=== PATIENT | male | born 1935 | race Caucasian/White ===

== ENCOUNTER → 2020-07-23 | Outpatient (CLI) | payer OTHER ==
[~2020-07-23] MED LIST: REGADENOSON 0.4 MG/5 ML PF SYG IVP SCH
== END | disposition home or self-care (01) ==
LOC: SHCH 08:34
PROVIDERS: ATTEND Internal Medicine Cardiovascular Disease
DX: I25.89 Other forms of chronic ischemic heart disease (principal); I25.10 Atherosclerotic heart disease of native coronary artery without angina pectoris
CPT/HCPCS: 78452; 93017; 96374; A9500 ×2; J2785

== ENCOUNTER 2022-01-23 05:45 | Day surgery (SDC) | payer OTHER ==
[2022-01-21 08:59] LABS: BASOPHILS % (AUTO) 0.3 % (0.0-5.0); CREATININE 1.2 mg/dL (0.5-1.5); EOSINOPHILS % (AUTO) 1.2 % (0.0-8.0); HEMATOCRIT 36.4 % (42-54); LYMPHOCYTES % (AUTO) 21.1 % (21.0-51.0); MEAN CORPUSCULAR HEMOGLOBIN 27.5 pg (27.0-33.0); MEAN CORPUSCULAR HGB CONC 30.8 g/dL (32.0-36.0); MEAN CORPUSCULAR VOLUME 89.4 fL (79-99); MONOCYTES % (AUTO) 15.4 % (3.0-13.0); NEUTROPHILS % (AUTO) 61.7 % (40.0-77.0); PLATELET COUNT (AUTO) 265 K/uL (130-400); RED BLOOD CELL COUNT(AUTO) 4.07 MIL/uL (4.50-6.20); RED CELL DISTRIBUTION WIDTH 15.8 % (11.0-15.5); WHITE BLOOD COUNT (AUTO) 5.7 K/uL (4.8-10.8)
[2022-01-21 09:00] LABS: INR 1.02 (0.85-1.15); PROTHROMBIN TIME 11.1 SEC (9.6-11.6)
[2022-01-21 09:44] LABS: B-TYPE NATRIURETIC PEPTIDE 561 pg/mL (0-100)
[2022-01-22 13:00] VITALS: BP 125/67
[~2022-01-23] VITALS: Ht 177.8 cm; Wt 86.2 kg
[2022-01-23] VITALS (9 sets, daily range): BP systolic 131–152; BP diastolic 72–92
[~2022-01-23 05:45] MED LIST changes: +AEC81 PO; +APIX5TAB PO; +AREDS2 PO; +ATOR40TA69 PO; +CALC-1034 PO; +FERS325 PO; +ISOS60TA77 PO; +LOSA50TA64 PO; +MAGN400C PO; +MELA5TAB14 PO; +METO-409 PO; +MULT-1285 PO; +NITR0.4T50 SL; +OMEG-148 PO; +PANT20TA18 PO; +RANO10003 PO; -REGADENOSON 0.4 MG/5 ML PF SYG IVP SCH; +VITA1CAP85 PO
[2022-01-23] MEDS ORDERED: IOHEXOL 350 MG/ML 100ML INFUS..BTL IV ONE (07:04)
[2022-01-23] MEDS ORDERED: HEPARIN 10,000 UNIT/10ML (1,000 UNIT/ML) VIAL ONE (07:04)
[2022-01-23] MEDS ORDERED: NITROGLYCERIN 50MG VIAL ONE (07:04)
[2022-01-23] MEDS ORDERED: BIVALIRUDIN 250 MG/VIAL IV ONE (07:04)
[2022-01-23] MEDS ORDERED: IOHEXOL-350 50ML VIAL IV ONE (07:04)
[2022-01-23] MEDS ORDERED: MIDAZOLAM HCL 1 MG/ML 2ML VIAL ONE (07:05)
[2022-01-23] MEDS ORDERED: LIDOCAINE HCL 400MG/20ML VIAL ONE (07:05)
[2022-01-23] MEDS ORDERED: FENTANYL CITRATE PF 50 MCG/1 ML 2ML VIAL ONE (07:06)
[2022-01-23] MEDS ORDERED: 0.9%NACL 1000ML 1,000 ML IV ONE (07:19)
== END 2022-01-23 12:10 | disposition home or self-care (01) ==
LOC: DAH 05:45
PROVIDERS: ATTEND Internal Medicine Cardiovascular Disease
DX: I25.119 Atherosclerotic heart disease of native coronary artery with unspecified angina pectoris (principal); I25.82 Chronic total occlusion of coronary artery; I10 Essential (primary) hypertension; E78.5 Hyperlipidemia, unspecified; I48.19 Other persistent atrial fibrillation; Z85.46 Personal history of malignant neoplasm of prostate; Z82.49 Family history of ischemic heart disease and other diseases of the circulatory system; Z98.890 Other specified postprocedural states; Z79.899 Other long term (current) drug therapy; Z79.01 Long term (current) use of anticoagulants
CPT/HCPCS: 36415; 71045; 83880; 80048; 85025; 85610; 85730; 93005; 93455; A4215; A4216; A4221; A4222; A4223 ×3; A4606; A4663; C1760; C1894; J1644; J3490 ×2; J7030; Q9965; Q9967; J0583; J2250; J3010

== ENCOUNTER 2022-03-19 11:17 | Emergency (ER) | payer MEDICARE, OTHER ==
[~2022-03-19] VITALS: Ht 175.3 cm; Wt 113.4 kg
[2022-03-19] MEDS ORDERED: ACETAMINOPHEN 500 MG TABLET PO ONE (11:30)
[2022-03-19 11:41] LABS: BASOPHILS % (AUTO) 0.2 % (0.0-5.0); EOSINOPHILS % (AUTO) 1.2 % (0.0-8.0); HEMATOCRIT 37.3 % (42-54); LYMPHOCYTES % (AUTO) 16.8 % (21.0-51.0); MEAN CORPUSCULAR HEMOGLOBIN 28.8 pg (27.0-33.0); MEAN CORPUSCULAR VOLUME 87.4 fL (79-99); MONOCYTES % (AUTO) 11.2 % (3.0-13.0); PLATELET COUNT (AUTO) 261 K/uL (130-400); RED BLOOD CELL COUNT(AUTO) 4.27 MIL/uL (4.50-6.20); RED CELL DISTRIBUTION WIDTH 14.7 % (11.0-15.5); WHITE BLOOD COUNT (AUTO) 6.5 K/uL (4.8-10.8)
[2022-03-19 11:59] LABS: CREATININE 1.2 mg/dL (0.5-1.5); POTASSIUM 4.5 mmol/L (3.5-5.1)
[2022-03-19] MEDS ORDERED: BACITRACIN 28.4 GM OINT TP ONE (12:00)
[2022-03-19 12:03] LABS: ALBUMIN 3.4 g/dL (3.5-5.0); TOTAL PROTEIN, SERUM 7.7 g/dL (6.0-8.3)
[2022-03-19 12:36] LABS: APPEARANCE,URINE TURBID (CLEAR); BILIRUBIN,URINE NEGATIVE (NEGATIVE); COLOR,URINE YELLOW (YELLOW); GLUCOSE, URINE (UA) NEGATIVE (NEGATIVE); KETONES,URINE NEGATIVE (NEGATIVE); LEUKOCYTE ESTERASE ,URINE NEGATIVE (NEGATIVE); NITRATE,URINE NEGATIVE (NEGATIVE); OCCULT BLOOD,URINE NEGATIVE (NEGATIVE); PH,URINE 8.5 (5.0-8.0); PROTEIN,URINE TRACE mg/dL (NEGATIVE); UROBILINOGEN,URINE 0.2 mg/dL (0.2-1.0)
[2022-03-19 12:59] LABS: AMORPHOUS SEDIMENT,UR Many /LPF (None Seen); BACTERIA,URINE Rare /HPF (None Seen); RBC,URINE 0-1 /HPF (0-1); SQUAMOUS EPITHELIAL CELL,UR Rare /HPF (0-2); WBC,URINE 0-1 /HPF (0-1)
[2022-03-19] MEDS ORDERED: ACET-66 PO (13:11)
[2022-03-19 13:15] VITALS: BP 132/72
== END 2022-03-19 13:24 | disposition home or self-care (01) ==
LOC: EDH 11:17
DX: S43.402A Unspecified sprain of left shoulder joint, initial encounter (principal); S00.12XA Contusion of left eyelid and periocular area, initial encounter; M79.642 Pain in left hand; I11.9 Hypertensive heart disease without heart failure; I25.10 Atherosclerotic heart disease of native coronary artery without angina pectoris; E78.5 Hyperlipidemia, unspecified; Z79.01 Long term (current) use of anticoagulants; Z79.82 Long term (current) use of aspirin; Z79.899 Other long term (current) drug therapy; W18.39XA Other fall on same level, initial encounter; Y93.89 Activity, other specified; Y92.89 Other specified places as the place of occurrence of the external cause; Y99.8 Other external cause status
CPT/HCPCS: 36415; 70450; 71045; 72125; 73030; 73130; 80053; 81001; 85025

== ENCOUNTER → 2024-09-17 | Outpatient (CLI) | payer OTHER ==
[~2024-09-17] MED LIST changes: +ACET-66 PO; -MELA5TAB14 PO; +MELA5TAB66 PO
--- NOTE | 2024-09-19 09:01 | HMCSR ---
APPROVED REPORT EXAM: Two-dimensional and M-mode echocardiogram with Doppler and color Doppler. INDICATION ICD: I50.20 Chronic systolic heart failure 2D Dimensions RVDd5.5 cmLVEF(%)65.7 (>50%)LVED Vol(simp.)59.3 mL IVSd1.0 (0.7-1.1cm)FS(%)36 %LVES Vol(simp.)23.3 mL LVDd4.7 (3.8-5.6cm)LA (2D)6.0 (1.6-4.0cm)LVEF(%, simp.)61 % PWd1.2 (0.7-1.1cm)Ao Root(2D)3.5 (2.0-3.7cm)LA ESV INDEX (4CH)43.60 mL/m2 IVSs0.9 cmLVOT diam2.2 (1.8-2.4cm)LA ESV INDEX (2CH)37.10 mL/m2 LVDs3.0 (2.5-4.0cm)LA ESV INDEX (BP)38.10 mL/m2 PWs1.8 cm M-Mode Dimensions EPSS1.2 cm LA (MM)5.4 (1.6-4.0cm) Ao Root(MM)3.9 (2.0-3.7cm) Aortic Valve AoV VTI0.2 mAo Mean GR3.0 mmHgLVOT VTI0.17 m JEN (VMAX)2.9 cm2Al P1/2T444 msAVA (VTI) 2.9 cm2 Mitral Valve MV E Uqod627.4 cm/sDECEL Genh144 ms MV A Vmax46.6 cm/sP 1/2 T53 ms E/A ratio2.5MVA (PHT)4.2 cm2 MR Max PG92 mmHg TDI E/E' Gjrvve29.8E/E' Sndhfav66.3 Medial E' Peak V8.50 cm/sLateral E' Peak V10.40 cm/s Pulmonary Valve PV VTI0.22 mPV Mean GR2 mmHg Tricuspid Valve TR Vmax3.6 m/sRAP (EST) 8 jlVhMAPH42.3 mmHg TR Peak GR51.3 mmHg Left Ventricle Left ventricular cavity size is normal. There is normal LV segmental wall motion. There is normal lef t ventricular wall thickness. LVEF is 60-65%. Stage III diastolic dysfunction. Right Ventricle The right ventricle is moderately dilated. Right ventricular systolic function is mildly reduced. Atria The left atrium is mildly dilated. The right atrium is severely dilated. Aortic Valve Aortic valve is trileaflet and opens well. Trace of aortic regurgitation is present. There is no aort ic valvular stenosis. Mitral Valve Posterior mitral valve annular calcification noted. The mitral valve is moderately thickened. There i s trace of mitral valve regurgitation noted. There is no mitral valve stenosis. Tricuspid Valve The tricuspid valve leaflets appear normal. There is moderate tricuspid valve regurgitation noted. RV SP 59mmHg. Pulmonic Valve The pulmonary valve is normal in structure and function. There is no pulmonic valvular regurgitation. Great Vessels The aortic root is normal in size. IVC is not well visualized. Pericardium No pericardial effusion. Other Information Quality : Fair Conclusion LVEF is 60-65%. Stage III diastolic dysfunction. The right ventricle is moderately dilated. Right ventricular systolic function is mildly reduced. Trace of aortic regurgitation is present. There is trace of mitral valve regurgitation noted. There is moderate tricuspid valve regurgitation noted. RVSP 59mmHg.
== END | disposition home or self-care (01) ==
LOC: SHCH 12:59
PROVIDERS: ATTEND Internal Medicine Cardiovascular Disease
DX: I08.1 Rheumatic disorders of both mitral and tricuspid valves (principal); I50.20 Unspecified systolic (congestive) heart failure; I50.89 Other heart failure
CPT/HCPCS: 93306